=== PATIENT | male | born 1990 | race Two or more races ===

== ENCOUNTER 2018-01-13 00:18 | Emergency (ER) | payer MEDICAID ==
[~2018-01-13] VITALS: Ht 175.3 cm; Wt 86.8 kg
[2018-01-13 05:10] VITALS: BP 112/67
== END 2018-01-13 06:10 | disposition home or self-care (01) ==
LOC: ER 00:18
DX: J02.9 Acute pharyngitis, unspecified (principal); R03.0 Elevated blood-pressure reading, without diagnosis of hypertension
CPT/HCPCS: 87070; 87430; 99284